=== PATIENT | male | born 1970 ===

== ENCOUNTER 2021-02-13 10:00 | Inpatient (IN) | payer OTHER ==
[~2021-02-13] VITALS: Ht 185.4 cm; Wt 113.9 kg
[2021-02-13] MEDS ORDERED: HYDRALAZINE HC100 MG PO (10:14)
[2021-02-13] MEDS ORDERED: NORVASC5 MG PO (10:15)
[2021-02-13] MEDS ORDERED: CARVEDILOL12.5 M1 PO (10:15)
== END 2021-02-18 23:07 | disposition home or self-care (01) | DRG 603 ==
LOC: ER 10:00 → MEDJ 20:59 → SEC-K 20:59 → MEDI 21:38 → MEDJ 22:16
PROVIDERS: ADMIT Internal Medicine; ATTEND Internal Medicine
PROC: B54CZZZ Ultrasonography of Left Lower Extremity Veins (ICD-10-PCS; principal; 2021-02-13)
PROC: BT4JZZZ Ultrasonography of Kidneys and Bladder (ICD-10-PCS; 2021-02-14)
PROC: BQ3HZZZ Magnetic Resonance Imaging (MRI) of Left Ankle (ICD-10-PCS; 2021-02-15)
DX: L03.116 Cellulitis of left lower limb (principal); L97.528 Non-pressure chronic ulcer of other part of left foot with other specified severity; I12.9 Hypertensive chronic kidney disease with stage 1 through stage 4 chronic kidney disease, or unspecified chronic kidney disease; N18.9 Chronic kidney disease, unspecified; B35.3 Tinea pedis; E87.5 Hyperkalemia

== ENCOUNTER 2022-12-26 10:24 | Emergency (ER) | payer OTHER ==
[~2022-12-26] VITALS: Ht 172.7 cm; Wt 95.3 kg
[~2022-12-26 10:24] MED LIST: CARVEDILOL12.5 M1 PO; HYDRALAZINE HC100 MG PO; NORVASC5 MG PO
[2022-12-26] MEDS ORDERED: AMLODIPINE-OLM1 EAC2 PO (10:45)
[2022-12-26] MEDS ORDERED: ZYLOPRIM100 M1 PO (10:46)
== END 2022-12-26 14:04 | disposition home or self-care (01) ==
LOC: ER 10:24
DX: I83.223 Varicose veins of left lower extremity with both ulcer of ankle and inflammation (principal); I10 Essential (primary) hypertension

== ENCOUNTER → 2023-10-03 09:03 | Outpatient (CLI) | payer OTHER ==
[~2023-10-03 09:03] MED LIST changes: +AMLODIPINE-OLM1 EAC2 PO; +ZYLOPRIM100 M1 PO
== END | disposition home or self-care (01) ==
LOC: NUCLEAR 09:03
PROVIDERS: ATTEND Specialist
DX: I87.2 Venous insufficiency (chronic) (peripheral) (principal)